=== PATIENT | female | born 1955 | race Caucasian/White ===

== ENCOUNTER 2017-08-21 11:00 | Emergency (ER) | payer MEDICARE, OTHER ==
[2017-08-21] MEDS ORDERED: Nitroglycerin TAB 0.4 MG* 0.4 MG TAB ONE (11:17)
[2017-08-21] MEDS ORDERED: Aspirin Low Dose CHEW TAB* 81 MG ONE (11:18)
[2017-08-21] MEDS ORDERED: Aspirin Low Dose CHEW TAB* 81 MG PO ONE (11:20)
[2017-08-21] MEDS: Nitroglycerin TAB 0.4 MG* 0.4 MG TAB SL PRN ×3 (11:22→11:32)
[2017-08-21 11:33] LABS: ABS Basophils 0.1 10^3/ul (0-0.2); ABS Eosinophils 0.2 10^3/ul (0-0.6); ABS Lymphocytes 1.7 10^3/ul (1.0-4.8); ABS Monocytes 0.4 10^3/ul (0-0.8); ABS Neutrophils 3.5 10^3/ul (1.5-7.7); ABS Nucleated RBC 0 10^3/ul; Eosinophil % 3.7 % (0-6); Hematocrit 39 % (35-47); Hemoglobin 12.7 g/dl (12.0-16.0); Lymphocyte % 28.5 % (25-47); Mean Corpuscular HGB Conc 33 g/dl (31-36); Mean Corpuscular Hemoglobin 28 pg (27-31); Mean Corpuscular Volume 85 fL (80-97); Mean Platelet Volume 8 um3 (7.4-10.4); Nucleated Red Blood Cells % 0; Platelet Count 243 10^3/ul (150-450); Red Blood Count 4.54 10^6/ul (4.0-5.4); Red Cell Distribution Width 16 % (10.5-15); White Blood Count 5.9 10^3/ul (3.5-10.8)
--- NOTE | 2017-08-21 11:41 | RAD ---
Indication: Chest and LEFT shoulder pain for about one week. History of cardiac disease. Comparison: No relevant prior exams available on the [facility] PACS for comparison. Technique: Upright AP 1133 hours Report: Clear lungs and pleural spaces. Negative for pneumothorax. The heart, pulmonary vasculature, and mediastinal contours are unremarkable. Unremarkable osseous structures and soft tissue contours. IMPRESSION: No evidence for acute intrathoracic disease.
[2017-08-21 11:47] LABS: EGFR Non-African American 51.8 (>60)
[2017-08-21] MEDS ORDERED: Ketorolac INJ* 30 MG/ML 1 ML VIAL IV PUSH ONE (12:03)
[2017-08-21 12:50] LABS: Urine Appearance Cloudy; Urine Blood Negative (Negative); Urine Color Yellow; Urine Ketones Negative (Negative); Urine Protein Negative (Negative); Urine Urobilinogen Negative (Negative)
[2017-08-21] MEDS ORDERED: Morphine INJ* 4 MG/ML 1 ML CARPUJECT IV ONE (12:53)
[2017-08-21] MEDS ORDERED: Morphine INJ* 2 MG/ML 1 ML CARPUJECT ONE (13:01)
[2017-08-21 16:12] VITALS: BP 155/78
--- NOTE | 2017-08-21 18:32 | ED ---
Maribel Monk Thomas, scribed for Mason Moreno MD on 08/21/17 at 1125 . HPI Chest Pain - HPI Summary HPI Summary: The patient is a 61 year old female presenting with chest pain that has been intermittent over the last week. The pain is described as a pressure and is rated 7/10. The patient had ASA 81 prior to arrival but did not take NTG. She complains of nausea, diaphoresis, and near syncope. She denies vomiting. Past surgical history includes three stents. - History of Current Complaint Chief Complaint: EDChestWallPain Time Seen by Provider: 08/21/17 11:11 Hx Obtained From: Patient Onset/Duration: Started Weeks Ago - 1, Still Present Timing: Intermittent Initial Severity: Moderate Current Severity: Moderate Pain Intensity: 7 Pain Scale Used: 0-10 Numeric Chest Pain Radiates: No Character: Pressure/Squeezing Alleviating Factor(s): Nothing Associated Signs and Symptoms: Positive: Other: - nausea, diaphoresis, near syncope; NEGATIVE: vomiting Related History: Obesity - Allergy/Home Medications Allergies/Adverse Reactions: Allergies Allergy/AdvReac Type Severity Reaction Status Date / Time iodine Allergy Anaphylatic Verified 08/21/17 11:06 Shock Penicillins Allergy Anaphylatic Verified 08/21/17 11:06 Shock shellfish derived Allergy Anaphylatic Verified 08/21/17 11:06 Shock Sulfa (Sulfonamide Allergy Airway Verified 08/21/17 11:12 Antibiotics) Obstruction Home Medications: Home Medications Ascorbic Acid TAB* [Vitamin C TAB*] 500 mg PO DAILY 08/21/17 [History Confirmed 08/21/17] Aspirin EC Low Dose* [Ecotrin EC Low Dose 81 MG*] 81 mg PO QAM 08/21/17 [ History Confirmed 08/21/17] Atorvastatin* [Lipitor*] 40 mg PO QPM 08/21/17 [History Confirmed 08/21/17] Carvedilol TAB* [Coreg TAB*] 6.25 mg PO QPM 08/21/17 [History Confirmed 08/21/17 ] Insulin GLARGINE(*) [Lantus(*)] 25 units SUBCUT QPM 08/21/17 [History Confirmed 08/21/17] Insulin LISPRO* [HumaLOG*] 2 - 12 units SUBCUT TID 08/21/17 [History Confirmed 08/21/17] Isosorbide Mononitrate ER TAB* [Imdur ER TAB*] 15 mg PO BID 08/21/17 [History Confirmed 08/21/17] Levothyroxine TAB* [Synthroid TAB*] 125 mcg PO QAM 08/21/17 [History Confirmed 08/21/17] Losartan/HCTZ 100/25 (NF) [Hyzaar 100/25 (NF)] 1 tab PO QAM 08/21/17 [History Confirmed 08/21/17] Multivitamins/Minerals TAB* [Theragran/minerals TAB*] 1 tab PO QAM 08/21/17 [ History Confirmed 08/21/17] Branch-3 Fatty Acids (Nf) [Fish Oil (NF)] 1,000 mg PO BID 08/21/17 [History Confirmed 08/21/17] Ubidecarenone [Coq10] 100 mg PO QAM 08/21/17 [History Confirmed 08/21/17] cloNIDine TAB* [Catapres 0.1 MG TAB*] 0.2 mg PO QPM 08/21/17 [History Confirmed 08/21/17] metFORMIN* [Glucophage 1000 MG TAB *] 1,000 mg PO BID 08/21/17 [History Confirmed 08/21/17] PMH/Surg Hx/FS Hx/Imm Hx Cardiovascular History: Reports: Hx Coronary Artery Disease Opthamlomology History: Denies: Hx Legally Blind EENT History: Denies: Hx Deafness Infectious Disease History: No Infectious Disease History: Denies: Traveled Outside the [place] in Last 30 Days - Family History Known Family History: Positive: Cardiac Disease - Social History Alcohol Use: Occasionally Substance Use Type: Reports: None Smoking Status (MU): Former Smoker Review of Systems Positive: Skin Diaphoresis. Negative: Fever Positive: Chest Pain Positive: Nausea. Negative: Vomiting Positive: Numbness - near All Other Systems Reviewed And Are Negative: Yes Physical Exam - Summary Physical Exam Summary: VITAL SIGNS: Reviewed. GENERAL: Patient is a well-developed and nourished female who is lying comfortable in the stretcher. Patient is not in any acute respiratory distress. HEAD AND FACE: No signs of trauma. No ecchymosis, hematomas or skull depressions. No sinus tenderness. EYES: PERRLA, EOMI x 2, No injected conjunctiva, no nystagmus. EARS: Hearing grossly intact. Ear canals and tympanic membranes are within normal limits. MOUTH: Oropharynx within normal limits. NECK: Supple, trachea is midline, no adenopathy, no JVD, no carotid bruit, no c- spine tenderness, neck with full ROM. CHEST: Symmetric, no tenderness at palpation LUNGS: Clear to auscultation bilaterally. No wheezing or crackles. CVS: Regular rate and rhythm, S1 and S2 present, no murmurs or gallops appreciated. ABDOMEN: Soft, non-tender. No signs of distention. No rebound no guarding, and no masses palpated. Bowel sounds are normal. EXTREMITIES: FROM in all major joints, no edema, no cyanosis or clubbing. NEURO: Alert and oriented x 3. No acute neurological deficits. Speech is normal and follows commands. SKIN: Dry and warm Triage Information Reviewed: Yes Vital Signs On Initial Exam: Initial Vitals Temp Pulse Resp BP Pulse Ox 97.5 F 66 16 217/94 100 08/21/17 11:06 08/21/17 11:06 08/21/17 11:06 08/21/17 11:06 08/21/17 11:06 Vital Signs Reviewed: Yes Diagnostics - Vital Signs Vital Signs Temp Pulse Resp BP Pulse Ox 08/21/17 11:06 97.5 F 66 16 217/94 100 - Laboratory Lab Results: Lab Results 08/21/17 08/21/17 08/21/17 Range/Units 11:26 11:26 11:26 WBC (3.5-10.8) 10^3/ul RBC (4.0-5.4) 10^6/ul Hgb (12.0-16.0) g/dl Hct (35-47) % MCV (80-97) fL MCH (27-31) pg MCHC (31-36) g/dl RDW (10.5-15) % Plt Count (150-450) 10^3/ul MPV (7.4-10.4) um3 Neut % (Auto) (38-83) % Lymph % (Auto) (25-47) % [place] % (Auto) (1-9) % Eos % (Auto) (0-6) % Baso % (Auto) (0-2) % Absolute Neuts (auto) (1.5-7.7) 10^3/ul Absolute Lymphs (auto) (1.0-4.8) 10^3/ul Absolute Monos (auto) (0-0.8) 10^3/ul Absolute Eos (auto) (0-0.6) 10^3/ul Absolute Basos (auto) (0-0.2) 10^3/ul Absolute Nucleated RBC 10^3/ul Nucleated RBC % APTT 30.1 (26.0-36.3) seconds Sodium 134 (133-145) mmol/L Potassium 4.0 (3.5-5.0) mmol/L Chloride 100 L (101-111) mmol/L Carbon Dioxide 29 (22-32) mmol/L Anion Gap 5 (2-11) mmol/L BUN 24 (6-24) mg/dL Creatinine 1.08 H (0.51-0.95) mg/dL Est GFR ( Amer) 66.6 (>60) Est GFR (Non-Af Amer) 51.8 (>60) BUN/Creatinine Ratio 22.2 H (8-20) Glucose 270 H (70-100) mg/dL Lactic Acid (0.5-2.0) mmol/L Calcium 9.1 (8.6-10.3) mg/dL Magnesium 2.0 (1.9-2.7) mg/dL Total Bilirubin 0.40 (0.2-1.0) mg/dL AST 17 (13-39) U/L ALT 17 (7-52) U/L Alkaline Phosphatase 57 (34-104) U/L Total Creatine Kinase 47 (10-223) U/L CK-MB (CK-2) 1.1 (0.6-6.3) ng/mL Troponin I 0.00 (<0.04) ng/mL B-Natriuretic Peptide 81 ( - 100) pg/mL Total Protein 6.4 (6.4-8.9) g/dL Albumin 3.7 (3.2-5.2) g/dL Globulin 2.7 (2-4) g/dL Albumin/Globulin Ratio 1.4 (1-3) TSH 0.11 L (0.34-5.60) mcIU/mL Urine Color Urine Appearance Urine pH (5-9) Ur Specific [place] (1.010-1.030) Urine Protein (Negative) Urine Ketones (Negative) Urine Blood (Negative) Urine Nitrate (Negative) Urine Bilirubin (Negative) Urine Urobilinogen (Negative) Ur Leukocyte Esterase (Negative) Urine Glucose (Negative) 08/21/17 08/21/17 08/21/17 Range/Units 11:26 11:26 12:40 WBC 5.9 (3.5-10.8) 10^3/ul RBC 4.54 (4.0-5.4) 10^6/ul Hgb 12.7 (12.0-16.0) g/dl Hct 39 (35-47) % MCV 85 (80-97) fL MCH 28 (27-31) pg MCHC 33 (31-36) g/dl RDW 16 H (10.5-15) % Plt Count 243 (150-450) 10^3/ul MPV 8 (7.4-10.4) um3 Neut % (Auto) 59.0 (38-83) % Lymph % (Auto) 28.5 (25-47) % [place] % (Auto) 7.7 (1-9) % Eos % (Auto) 3.7 (0-6) % Baso % (Auto) 1.1 (0-2) % Absolute Neuts (auto) 3.5 (1.5-7.7) 10^3/ul Absolute Lymphs (auto) 1.7 (1.0-4.8) 10^3/ul Absolute Monos (auto) 0.4 (0-0.8) 10^3/ul Absolute Eos (auto) 0.2 (0-0.6) 10^3/ul Absolute Basos (auto) 0.1 (0-0.2) 10^3/ul Absolute Nucleated RBC 0 10^3/ul Nucleated RBC % 0 APTT (26.0-36.3) seconds Sodium (133-145) mmol/L Potassium (3.5-5.0) mmol/L Chloride (101-111) mmol/L Carbon Dioxide (22-32) mmol/L Anion Gap (2-11) mmol/L BUN (6-24) mg/dL Creatinine (0.51-0.95) mg/dL Est GFR ( Amer) (>60) Est GFR (Non-Af Amer) (>60) BUN/Creatinine Ratio (8-20) Glucose (70-100) mg/dL Lactic Acid 1.9 (0.5-2.0) mmol/L Calcium (8.6-10.3) mg/dL Magnesium (1.9-2.7) mg/dL Total Bilirubin (0.2-1.0) mg/dL AST (13-39) U/L ALT (7-52) U/L Alkaline Phosphatase (34-104) U/L Total Creatine Kinase (10-223) U/L CK-MB (CK-2) (0.6-6.3) ng/mL Troponin I (<0.04) ng/mL B-Natriuretic Peptide ( - 100) pg/mL Total Protein (6.4-8.9) g/dL Albumin (3.2-5.2) g/dL Globulin (2-4) g/dL Albumin/Globulin Ratio (1-3) TSH (0.34-5.60) mcIU/mL Urine Color Yellow Urine Appearance Cloudy Urine pH 7.0 (5-9) Ur Specific [place] 1.010 (1.010-1.030) Urine Protein Negative (Negative) Urine Ketones Negative (Negative) Urine Blood Negative (Negative) Urine Nitrate Negative (Negative) Urine Bilirubin Negative (Negative) Urine Urobilinogen Negative (Negative) Ur Leukocyte Esterase Negative (Negative) Urine Glucose 1+(50 mg/dl) H (Negative) 08/21/17 Range/Units 14:35 WBC (3.5-10.8) 10^3/ul RBC (4.0-5.4) 10^6/ul Hgb (12.0-16.0) g/dl Hct (35-47) % MCV (80-97) fL MCH (27-31) pg MCHC (31-36) g/dl RDW (10.5-15) % Plt Count (150-450) 10^3/ul MPV (7.4-10.4) um3 Neut % (Auto) (38-83) % Lymph % (Auto) (25-47) % [place] % (Auto) (1-9) % Eos % (Auto) (0-6) % Baso % (Auto) (0-2) % Absolute Neuts (auto) (1.5-7.7) 10^3/ul Absolute Lymphs (auto) (1.0-4.8) 10^3/ul Absolute Monos (auto) (0-0.8) 10^3/ul Absolute Eos (auto) (0-0.6) 10^3/ul Absolute Basos (auto) (0-0.2) 10^3/ul Absolute Nucleated RBC 10^3/ul Nucleated RBC % APTT (26.0-36.3) seconds Sodium (133-145) mmol/L Potassium (3.5-5.0) mmol/L Chloride (101-111) mmol/L Carbon Dioxide (22-32) mmol/L Anion Gap (2-11) mmol/L BUN (6-24) mg/dL Creatinine (0.51-0.95) mg/dL Est GFR ( Amer) (>60) Est GFR (Non-Af Amer) (>60) BUN/Creatinine Ratio (8-20) Glucose (70-100) mg/dL Lactic Acid (0.5-2.0) mmol/L Calcium (8.6-10.3) mg/dL Magnesium (1.9-2.7) mg/dL Total Bilirubin (0.2-1.0) mg/dL AST (13-39) U/L ALT (7-52) U/L Alkaline Phosphatase (34-104) U/L Total Creatine Kinase (10-223) U/L CK-MB (CK-2) (0.6-6.3) ng/mL Troponin I 0.00 (<0.04) ng/mL B-Natriuretic Peptide ( - 100) pg/mL Total Protein (6.4-8.9) g/dL Albumin (3.2-5.2) g/dL Globulin (2-4) g/dL Albumin/Globulin Ratio (1-3) TSH (0.34-5.60) mcIU/mL Urine Color Urine Appearance Urine pH (5-9) Ur Specific [place] (1.010-1.030) Urine Protein (Negative) Urine Ketones (Negative) Urine Blood (Negative) Urine Nitrate (Negative) Urine Bilirubin (Negative) Urine Urobilinogen (Negative) Ur Leukocyte Esterase (Negative) Urine Glucose (Negative) Result Diagrams: 08/21/17 11:26 08/21/17 11:26 Lab Statement: Any lab studies that have been ordered have been reviewed, and results considered in the medical decision making process. - Radiology CXR Xray Interpretation: No Acute Changes - No evidence for acute intrathoracic disease. Dr. Moreno has reviewed this report. Radiology Interpretation Completed By: Radiologist - EKG 11:06 Cardiac Rate: NL EKG Rhythm: Sinus Rhythm - at 61 BPM EKG Interpretation: No ST elevations. Chest Pain Course/Dx - Course Assessment/Plan: The patient is a 61 year old female presenting with chest pain that has been intermittent over the last week. The pain is described as a pressure and is rated 7/10. The patient had ASA 81 prior to arrival but did not take NTG. She complains of nausea, diaphoresis, and near syncope. She denies vomiting. Past surgical history includes three stents. Test results are without significant abnormalities except creatinine 1.08, glucose 270. Two troponins taken four hours apart are 0.00. The patient was given ASA, NTG without any significant improvements in symptoms. The patients symptoms did improve with Toradol and morphine. The patient at this time is asymptomatic and feeling better. I do not believe that the patient has an acute coronary syndrome. Therefore, the patient will be discharged home to follow up with primary care. - Chest Pain Differential Diagnosis/HQI/PQRI: Acute UT, ACS, Angina, CHF, Chest Wall, GI Disease, Lower Respiratory Infection, Pulmonary Edema - Diagnoses Provider Diagnoses: Atypical chest pain Discharge - Discharge Plan Condition: Stable Disposition: HOME Patient Education Materials: Chest Pain (ED) Referrals: Theodore Powell MD [Primary Care Provider] - 3 Days Additional Instructions: Follow up with your primary care provider in three days. Return to the emergency department for any new or worsening symptoms. The documentation as recorded by the Maribel santos Thomas accurately reflects the service I personally performed and the decisions made by , Mason Moreno MD.
== END 2017-08-21 16:14 | disposition home or self-care (01) ==
LOC: ED 11:00
DX: R07.89 Other chest pain (principal); I25.10 Atherosclerotic heart disease of native coronary artery without angina pectoris; R11.0 Nausea; Z87.891 Personal history of nicotine dependence; E66.9 Obesity, unspecified
CPT/HCPCS: 36415; 71045; 80053; 81003; 82550; 82553; 83605; 83735; 83880; 84443; 84484; 85025; 85730; 93005; 96374; 96375; 96376; 99283; A9270-GY; J1885; J2270